=== PATIENT | male | born 1965 | race Caucasian/White ===

== ENCOUNTER → 2022-02-02 | Outpatient (CLI) | payer OTHER, SELFPAY ==
--- NOTE | 2022-02-02 14:29 | VDLE_ITS ---
Reason For Study: Swelling Procedure LEFT This is a venous duplex using B-mode, color GSV is normal. flow and spectral Doppler. CFV is compressible, spontaneous, phasic, Exam performed in department. competent, and demonstrates normal A preliminary report was called and/or faxed augmentation. to Sarah Israel. FV is compressible, spontaneous, phasic, competent and demonstrates normal augmentation. POP V is compressible, spontaneous, phasic, competent and demonstrates normal augmentation. T/P Trunk is compressible. PTV is compressible. LT PerV is compressible. Heterogenous, non vascular structure noted Lt posterior calf measuring 2.01cm x 5.37cm (over area of injury). VL/Venous Duplex US, Unilateral Interpretation Summary Deep veins of the left lower extremity are patent and compressible segmentally. There is no evidence of left lower extremity deep vein thrombosis. Valvular competence appears intac t within the proximal deep venous system on the left . The left great saphenous vein appears patent a nd compressible segmentally. A non-vascular, heterogeneous structure is noted in the left poste rior calf, measuring 2.01 cm x 5.37 cm. This probably represents a hematoma. Clinical correlation is advised. Ordering Physician: SARAH ISRAEL Referring Physician: Benito Owens Performed By: [place], DOTTIE, RVT
== END | disposition home or self-care (01) ==
LOC: CVS 14:25
PROVIDERS: PCP Family Medicine
DX: M79.89 Other specified soft tissue disorders (principal); R60.0 Localized edema
CPT/HCPCS: 93971